=== PATIENT | male | born 1970 | race Caucasian/White ===

== ENCOUNTER 2016-08-06 12:22 | Emergency (ER) | payer OTHER ==
[~2016-08-06] VITALS: Wt 110.0 kg
[~2016-08-06 12:22] MED LIST: ELIM TOP
== END 2016-08-06 16:28 | disposition left against medical advice (07) ==
LOC: FTE 12:22
DX: Z53.21 Procedure and treatment not carried out due to patient leaving prior to being seen by health care provider (principal)

== ENCOUNTER 2017-04-13 03:29 | Inpatient (IN) | payer OTHER ==
[~2017-04-13] VITALS: Ht 190.5 cm; Wt 98.7 kg
[2017-04-13] VITALS (9 sets, daily range): BP systolic 109–132; BP diastolic 61–96; PULSE 50–57; RESP 18; TEMP 96; Ht 190.5 cm; Wt 98.7 kg
--- NOTE | 2017-04-13 03:53 | ERA ---
ER Documentation Chief Complaint Date/Time DATE: 04/13/17 TIME: 03:52 Chief Complaint chest pain/sob x 1 week HPI The patient is a 46-year-old male, presenting with acute on chronic left-sided chest pain and dyspnea on exertion for the last 3-4 years. He was seen at [facility] by the hospital 4 days ago and was found to have symptomatic bradycardia. He had a pacemaker implanted and discharged 3 days ago. He still complaining of having chronic left-sided chest pain and chronic dyspnea on exertion, denies paroxysmal nocturnal dyspnea, orthopnea. He denies neck pain, chest pain with vomiting/diaphoresis, abdominal pain, vomiting, dysuria, diarrhea. He does not smoke nor drink or use illicit drugs Past medical history: Hepatitis C, CAD Past medical history: Pacemaker ROS All systems reviewed and are negative except as per history of present illness. Medications Home Meds Active Scripts Permethrin* (Elimite*) 5% Cr, 1 APPLIC TOP ONCE, #2 TUB Prov:SHAGGYMOSESERIN 03/11/15 Allergies Allergies: Coded Allergies: No Known Allergies (Unverified Allergy, Unknown, 01/25/15) PMhx/Soc History of Surgery: No Anesthesia Reaction: No Hx Neurological Disorder: No Hx Respiratory Disorders: No Hx Cardiac Disorders: No Hx Psychiatric Problems: No Hx Miscellaneous Medical Probl: Yes (hep c, scabies) Hx Alcohol Use: No Hx Substance Use: No Hx Tobacco Use: No Physical Exam Vitals Vital Signs Date Time Temp Pulse Resp B/P Pulse Ox O2 Delivery O2 Flow Rate FiO2 04/13/17 03:50 96.0 64 20 135/81 100 Room Air 04/13/17 03:34 96.0 60 20 142/80 98 Physical Exam Const: No acute distress. Head: Atraumatic. Eyes: Normal Conjunctiva. ENT: Normal External Ears, Nose and Mouth. Neck: Full range of motion. No meningismus. Resp: Clear to auscultation bilaterally. Cardio: Regular rate and rhythm. Abd: Soft, non distended, normal bowel sounds, non tender. Skin: No petechiae or rashes. Back: No midline or flank tenderness. Ext: No cyanosis, or edema. Neur: Awake and alert. No focal deficit Psych: Normal Mood and Affect. Result Diagram: 04/13/1740904/13/17409 Results 24 hrs Laboratory Tests Test 04/13/17 04:10 White Blood Count 5.810^3/ul Red Blood Count 4.4810^6/ul Hemoglobin 14.0g/dl Hematocrit 39.0% Mean Corpuscular Volume 87.1fl Mean Corpuscular Hemoglobin 31.3pg Mean Corpuscular Hemoglobin Concent 35.9g/dl Red Cell Distribution Width 12.2% Platelet Count 53969^3/UL Mean Platelet Volume 11.2fl Neutrophils % 56.4% Lymphocytes % 26.1% Monocytes % 12.1% Eosinophils % 4.5% Basophils % 0.7% Nucleated Red Blood Cells % 0.0/100WBC Neutrophils # 3.310^3/ul Lymphocytes # 1.510^3/ul Monocytes # 0.710^3/ul Eosinophils # 0.310^3/ul Basophils # 0.010^3/ul Nucleated Red Blood Cells # 0.010^3/ul Prothrombin Time 14.8Sec Prothrombin Time Ratio 1.2 INR International Normalized Ratio 1.16 Activated Partial Thromboplast Time 31.4Sec Sodium Level 141mmol/L Potassium Level 4.1mmol/L Chloride Level 102mmol/L Carbon Dioxide Level 33mmol/L Anion Gap 10 Blood Urea Nitrogen 14mg/dl Creatinine 0.85mg/dl Glucose Level 71mg/dl Calcium Level 8.8mg/dl Magnesium Level 1.6mg/dl Troponin I < 0.012ng/ml B-Type Natriuretic Peptide 35PG/ML Procedures/MDM EKG: Read by emergency physician Rate/Rhythm: Sinus bradycardia 55 beats/min QRS, ST, T-waves: No ST elevation, no T inversion Impression: Abnormal EKG [place] [id number] Radiology Main Line: [phone] DIAGNOSTIC IMAGING REPORT Patient: AMANDA GARCIA : 1970 Age: 46 Sex: M MR #: [id number] DOS: 04/13/17 0400 Ordering MD: BARTOLO PEARL MD Location: E/R Room/Bed: PROCEDURE: Chest. CLINICAL INDICATION: Shortness of breath. TECHNIQUE: Single frontal view of the chest was obtained. COMPARISON: 06/04/2014. FINDINGS: There is a left-sided pacemaker. The cardiac silhouette is magnified. The aortic arch is unremarkable. There is no focal consolidation, vascular congestion or pleural effusion. There is no pneumothorax. IMPRESSION: No evidence for active cardiopulmonary disease. .Alexis Rg MD, Date Time Electronically viewed and signed by .Alexis Rg MD, on 04/13/2017 04:42 .T/ CC: BARTOLO PEARL MD MEDICAL MAKING DECISION: The patient is a 46-year-old male, with multiple cardiac risk factor, presenting with acute chest pain that is concerning for an acute ACS. He was treated with aspirin 325 mg p.o. and 1 inch of nitroglycerin ointment to the chest wall with good response The differential diagnoses considered include but are not limited to acute coronary syndrome, acute myocardial infarction, pericarditis, pulmonary embolism , aortic dissection, pneumonia, pleural effusion, pneumothorax, GERD, chest wall pain. Departure Diagnosis: Primary Impression: Chest pain Condition: Stable Comments I discussed the findings with the patient. I discussed the patient with the on- call hospitalist Dr. Foster at 5:30 AM who was made aware of the lab, the treatment, the patient condition. The patient is admitted to telemetry BARTOLO PEARL MD Apr 13, 2017 03:53
[2017-04-13 04:25] LABS: BASOPHILS % 0.7 % (0.0-2.0); EOSINOPHILS # 0.3 10^3/ul (0.0-0.5); EOSINOPHILS % 4.5 % (0.0-7.0); LYMPHOCYTES # 1.5 10^3/ul (0.8-2.9); LYMPHOCYTES % 26.1 % (15.0-51.0); MEAN CORPUSCULAR HEMOGLOBIN 31.3 pg (29.0-33.0); MEAN CORPUSCULAR HGB CONC 35.9 g/dl (32.0-37.0); MEAN CORPUSCULAR VOLUME 87.1 fl (82.0-101.0); MEAN PLATELET VOLUME 11.2 fl (7.4-10.4); MONOCYTE # 0.7 10^3/ul (0.3-0.9); MONOCYTES % 12.1 % (0.0-11.0); NEUTROPHIL # 3.3 10^3/ul (1.6-7.5); NEUTROPHILS % 56.4 % (39.0-77.0); PLATELET COUNT 175 10^3/UL (140-415); RED BLOOD COUNT 4.48 10^6/ul (4.70-6.10); RED CELL DISTRIBUTION WIDTH 12.2 % (11.5-14.5); WHITE BLOOD COUNT 5.8 10^3/ul (4.8-10.8)
[2017-04-13 04:40] LABS: INR 1.16; PROTIME 14.8 Sec (12.2-14.2); PT RATIO 1.2
[2017-04-13 04:41] LABS: PARTIAL THROMBOPLASTIN TIME 31.4 Sec (25.0-35.0)
--- NOTE | 2017-04-13 04:42 | RADRPT ---
PROCEDURE: Chest. CLINICAL INDICATION: Shortness of breath. TECHNIQUE: Single frontal view of the chest was obtained. COMPARISON: 06/04/2014. FINDINGS: There is a left-sided pacemaker. The cardiac silhouette is magnified. The aortic arch is unremarkab le. There is no focal consolidation, vascular congestion or pleural effusion. There is no pneumoth orax. IMPRESSION: No evidence for active cardiopulmonary disease. .Alexis Rg MD, MD Date Time Electronically viewed and signed by .Alexis Rg MD, on 04/13/2017 04:42 .T/
[2017-04-13 04:59] LABS: ANION GAP 10 (8-16); BLOOD UREA NITROGEN 14 mg/dl (7-20); CALCIUM 8.8 mg/dl (8.4-10.2); CARBON DIOXIDE 33 mmol/L (21-31); CHLORIDE 102 mmol/L (97-110); CREATININE 0.85 mg/dl (0.61-1.24); GLUCOSE 71 mg/dl (70-220); MAGNESIUM 1.6 mg/dl (1.7-2.5); POTASSIUM 4.1 mmol/L (3.5-5.1); SODIUM 141 mmol/L (135-144)
[2017-04-13 05:08] LABS: B-TYPE NATRIURETIC PEPTIDE 35 PG/ML (0-125)
[2017-04-13 05:22] LABS: TROPONIN-I < 0.012 ng/ml (0.00-0.12)
[2017-04-13] MEDS ORDERED: ASPIRIN 325 MG TAB PO ONE (06:00)
[2017-04-13] MEDS ORDERED: NITROGLYCERIN 2% 1 GM OINT PKT TD ONE (06:00)
[2017-04-13] MEDS ORDERED: BISACODYL (EC) 5 MG TAB PO PRN (06:30)
[2017-04-13] MEDS ORDERED: NACL 0.9% 3 ML SYG IV SCH (06:30)
[2017-04-13] MEDS ORDERED: DOCUSATE SODIUM 100 MG CAP PO PRN (06:30)
[2017-04-13] MEDS ORDERED: NITROGLYCERIN (SL) 0.4 MG TAB SL PRN (06:30)
[2017-04-13] MEDS ORDERED: morphine 2 MG INJ IV PRN (06:30)
[2017-04-13] MEDS ORDERED: ONDANSETRON 4 MG INJ IV PRN (06:30)
[2017-04-13] MEDS ORDERED: ACETAMINOPHEN 325 MG TAB PO PRN (06:30)
[2017-04-13 06:53] LABS: BARBITURATES Negative (NEGATIVE); BENZODIAZEPINES Negative (NEGATIVE); CANNABINOIDS Negative (NEGATIVE); COCAINE Negative (NEGATIVE); OPIATES Negative (NEGATIVE)
[2017-04-13] MEDS ORDERED: ASPIRIN 81 MG TAB PO SCH (09:00)
[2017-04-13] MEDS ORDERED: FAMOTIDINE 20 MG TAB PO SCH (09:00)
[2017-04-13] MEDS ORDERED: MAGNESIUM SULFATE 1 GM/D5W 100 ML IVPB ONE (10:30)
[2017-04-13 10:50] LABS: CREATINE KINASE 102 IU/L (23-200)
[2017-04-13 11:05] LABS: CK-MB 1.31 ng/ml (0.0-2.4); TROPONIN-I < 0.012 ng/ml (0.00-0.12)
--- NOTE | 2017-04-13 12:26 | HP ---
Date/Time of Note Date/Time of Note DATE: 04/13/17 TIME: 12:22 Assessment/Plan VTE Prophylaxis VTE Prophylaxis Intervention: SCD's Lines/Catheters IV Catheter Type (from Nrsg): Saline Lock Urinary Cath still in place: No Assessment/Plan Assessment/Plan 46 yo M with 4 years of chest pain, stress test negative within past 4 weeks, PM placement within past 4 days for symptomatic bradycardia. Suspect noncardiac chest pain given recent negative stress device interrogated today by [employer], working well if able to obtain paper copy of recent stress test, will dc today. otherwise will call OSH again and then dc in AM HPI/ROS Admit Date/Time Admit Date/Time Apr 13, 2017 at 05:27 Hx of Present Illness 46 yo M presents with 4 years of chronic chest pain. Pt seen at [facility] for this, released 4 days ago. Work up at OSH notable for NEGATIVE NM STRESS TEST, finding of sinus bradycardia for which PM was placed. Pt poor historian, keeps pulling blanket up over his head States he does not know what predatory hunter he is supposed to see in follow up PMH/Family/Social Past Medical History sinus bradycardia sp recent PM placement Social History Smoking Status: Never smoker Exam/Review of Systems Vital Signs Vitals Vital Signs Date Time Temp Pulse Resp B/P Pulse Ox O2 Delivery O2 Flow Rate FiO2 04/13/17 11:34 97.7 50 18 109/61 98 04/13/17 06:34 Room Air Exam Exam laying in bed, covered in tattoos PM site with gauze and clear bandage over it no mrg lungs clear abd soft no edema labs reviewed, trops neg x 2 Labs Result Diagram: 04/13/17 0410 04/13/17 0410 Medications Medications Current Medications Ondansetron HCl (Zofran Inj) 4 mg Q6H PRN IV NAUSEA AND/OR VOMITING; Start at 06:30 Aspirin (Aspirin) 81 mg DAILY PO Last administered on 04/13/17t 09:43; Admin Dose 81 MG; Start 04/13/17 at 09:00 Nitroglycerin (Nitroglycerin (Sl Tab) 0.4 Mg) 1 tab Q5M PRN SL CHEST PAIN; Start 04/13/17 at 06:30 Acetaminophen (Tylenol Tab) 650 mg Q6H PRN PO PAIN LEVEL 1-3 OR FEVER; Start at 06:30 Morphine Sulfate (morphine) 2 mg Q4H PRN IV PAIN LEVEL 7-10; Start 04/13/17 at 06:30 Docusate Sodium (Colace) 100 mg Q12H PRN PO CONSTIPATION; Start 04/13/17 at 06: 30 Bisacodyl (Dulcolax) 5 mg DAILY PRN PO CONSTIPATION; Start 04/13/17 at 06:30 TIMUR VERDUGO MD Apr 13, 2017 12:26
[2017-04-13 15:48] LABS: CREATINE KINASE 85 IU/L (23-200)
[2017-04-13 16:01] LABS: CK-MB 1.02 ng/ml (0.0-2.4); TROPONIN-I < 0.012 ng/ml (0.00-0.12)
--- NOTE | 2017-04-13 16:36 | PDOCDIS ---
Discharge Instructions CONDITION Patient Condition: Stable FOLLOW UP/APPOINTMENTS Follow-up Plan Follow up with your regular doctor within 7 days TIMUR VERDUGO MD Apr 13, 2017 16:36
--- NOTE | 2017-04-13 16:41 | DS ---
Date/Time of Note Date/Time of Note DATE: 04/13/17 TIME: 16:36 Discharge Summary Admission/Discharge Info Admit Date/Time Apr 13, 2017 at 05:27 Discharge Date/Time Discharge Diagnosis chest discomfort Patient Condition: Stable Procedures EKG: sinus jeanette PM evaluated by device rep: working well, lower threshold for HR is 50 Hx of Present Illness 46 yo M presents with 4 years of chronic chest pain. Pt seen at [facility] for this, released 4 days ago. Work up at OSH notable for NEGATIVE NM STRESS TEST, finding of sinus bradycardia for which PM was placed. Pt poor historian, keeps pulling blanket up over his head States he does not know what nickel operator he is supposed to see in follow up Hospital Course Pt ruled out for ACS with serial troponins. I contacted Dr Robins the nickel operator who placed the pt's PM at [facility]. He states pt had a stress test at that hospital within the past 2 weeks which was negative. [facility] Chart reviewed. Pt also had cardiac cath in 2013 which was normal at an OSH. Device assessed by company rep and is functioning well. Pt does not have any known cardiovascular risk factors. No hx HTN, HL, DM. Initial EKG nl. HEART score is 1 (pt's age). Pt advised to follow up with PCP for any further concerns Home Meds Active Scripts Permethrin* (Elimite*) 5% Cr, 1 APPLIC TOP ONCE, #2 TUB Prov:ERIN COON DO 03/11/15 Follow-up Plan Follow up with your regular doctor within 7 days Primary Care Provider Care Physician No Primary Pending Labs Laboratory Tests Test 04/13/17 04:10 04/13/17 05:40 04/13/17 09:32 04/13/17 15:12 White Blood Count 5.810^3/ul (4.8-10.8) Red Blood Count 4.4810^6/ul (4.70-6.10) Hemoglobin 14.0g/dl (14.0-18.0) Hematocrit 39.0% (42.0-52.0) Mean Corpuscular Volume 87.1fl (82.0-101.0) Mean Corpuscular Hemoglobin 31.3pg (29.0-33.0) Mean Corpuscular Hemoglobin Concent 35.9g/dl (32.0-37.0) Red Cell Distribution Width 12.2% (11.5-14.5) Platelet Count 36043^3/UL (140-415) Mean Platelet Volume 11.2fl (7.4-10.4) Neutrophils % 56.4% (39.0-77.0) Lymphocytes % 26.1% (15.0-51.0) Monocytes % 12.1% (0.0-11.0) Eosinophils % 4.5% (0.0-7.0) Basophils % 0.7% (0.0-2.0) Nucleated Red Blood Cells % 0.0/100WBC (0.0-0.0) Neutrophils # 3.310^3/ul (1.6-7.5) Lymphocytes # 1.510^3/ul (0.8-2.9) Monocytes # 0.710^3/ul (0.3-0.9) Eosinophils # 0.310^3/ul (0.0-0.5) Basophils # 0.010^3/ul (0.0-0.1) Nucleated Red Blood Cells # 0.010^3/ul (0.0-0.0) Prothrombin Time 14.8Sec (12.2-14.2) Prothrombin Time Ratio 1.2 INR International Normalized Ratio 1.16 Activated Partial Thromboplast Time 31.4Sec (25.0-35.0) Sodium Level 141mmol/L (135-144) Potassium Level 4.1mmol/L (3.5-5.1) Chloride Level 102mmol/L (97-110) Carbon Dioxide Level 33mmol/L (21-31) Anion Gap 10 (8-16) Blood Urea Nitrogen 14mg/dl (7-20) Creatinine 0.85mg/dl (0.61-1.24) Glucose Level 71mg/dl (70-220) Calcium Level 8.8mg/dl (8.4-10.2) Magnesium Level 1.6mg/dl (1.7-2.5) Troponin I < 0.012ng/ml (0.00-0.12) < 0.012ng/ml (0.00-0.12) < 0.012ng/ml (0.00-0.12) B-Type Natriuretic Peptide 35PG/ML (0-125) Urine Opiates Screen Negative (NEGATIVE) Urine Barbiturates Negative (NEGATIVE) Urine Amphetamines Screen Negative (NEGATIVE) Urine Benzodiazepines Screen Negative (NEGATIVE) Urine Cocaine Screen Negative (NEGATIVE) Urine Cannabinoids Negative (NEGATIVE) Creatine Kinase 102IU/L (23-200) 85IU/L (23-200) Creatine Kinase Index 1.3 1.2 Creatinine Kinase MB (Mass) 1.31ng/ml (0.0-2.4) 1.02ng/ml (0.0-2.4) TIMUR VERDUGO MD Apr 13, 2017 16:41
--- NOTE | 2017-04-15 13:21 | RADRPT ---
Echocardiogram Report Patient Name: AMANDA GARCIA Gender: Male Date: 1970 Study Date: 13-Apr-2017 Bicycle Rental Clerk: Kristine [facility] Location: 516-A Ref. Physician: SANDY HER Quality: Adequate Procedures: Transthoracic echocardiogram with complete 2D, M-Mode, and doppler examination. Indications: Chest Pain. 2D/M Mode Doppler Measurement Value Normal Ranges Measurement Value Normal Ranges LVIDd 2D 5.0 3.5 - 5.6 cm AV Peak Jesse 1.4 m/sec LVIDs 2D 3.3 2.1 - 4.1 cm AV Peak PG 8.0 mmHg FS 2D 33.6 % LVOT Peak Jesse 0.9 m/sec LVPWd 2D 1.0 0.6 - 1.1 cm LVOT Peak PG 4.0 mmHg IVSd 2D 1.0 0.6 - 1.1 cm MV E Peak Jesse 0.7 m/sec IVS/LVPW 2D 1.0 MV A Peak Jesse 0.6 m/sec AoR Diam 2D 2.2 2.0 - 3.7 cm MV E/A 1.2 LA/Ao 2D 2 0 - 1 MV Decel Time 130 msec EDV 2D 125.0 cm3 MV E/A 1.2 ESV 2D 36.6 cm3 TR Peak Jesse 2.4 m/sec LA Dimen 2D 3.8 2.3 - 4.0 cm TR Peak PG 22.0 mmHg RVSP 25.0 mmHg Findings Left Ventricle: Normal left ventricular systolic function. Normal left ventricular cavity size. Normal left ventricular wall thickness. Ejection fraction is visually estimated at 60 %. Abnormal Diastolic Function. Right Ventricle: Normal right ventricular size. Normal right ventricular systolic function. Pacemaker right heart. Left Atrium: The left atrium is normal in size. Right Atrium: The right atrium is normal in size. Mitral Valve: Mild mitral leaflet calcification. Mild mitral annular calcification. Trace mitral regurgitation. Aortic Valve: Normal appearance of the aortic valve. No significant aortic stenosis or insufficiency. Tricuspid Valve: Normal appearance of the tricuspid valve. Estimated peak PA systolic pressure 25 mmHg. There is mild tricuspid regurgitation. Pulmonic Valve: Pulmonic valve not well visualized. There is trace pulmonic regurgitation. Pericardium: Normal pericardium with no significant pericardial effusion. Aorta: Normal aortic root. IVC: Normal size and normal respiratory collapse consistent with normal right atrial pressure. Conclusions 1.Normal left ventricular systolic function. Normal left ventricular cavity size. Normal left ventricular wall thickness. 2.Abnormal LV Diastolic Function noted. 3.Pacemaker in right heart detected. 4.Mild mitral annular calcification. Electronically Signed By: Wagner Pride 15-Apr-2017 13:20:10 -0700 Patient Name: AMANDA GARCIA Study Date: 13-Apr-2017 [id number]
== END 2017-04-13 18:23 | disposition home or self-care (01) | DRG 310 ==
LOC: E/R 03:29 → TEL 05:27
PROVIDERS: ADMIT Family Medicine; ATTEND Family Medicine
DX: R00.1 Bradycardia, unspecified (principal); R07.9 Chest pain, unspecified
CPT/HCPCS: 36415; 71010; 80048; 80307; 82550; 82553; 83735; 83880; 84484; 85025; 85610; 85730; 93005; 93306; J3475

== ENCOUNTER 2017-05-10 09:34 | Emergency (ER) | payer OTHER ==
[~2017-05-10] VITALS: Ht 157.5 cm; Wt 100.0 kg
[2017-05-10 09:47] VITALS: Ht 157.5 cm; Wt 100.0 kg
--- NOTE | 2017-05-10 12:40 | ERD ---
ER Documentation Chief Complaint Chief Complaint Complains of right ear pain HPI 46 y/o male presents to the ED, c/o of one week with right ear discomfort after inserting piece of cotton. Denies fever, chills, no otorrhea. No hearing loss ROS All systems reviewed and are negative except as per history of present illness. Medications Home Meds Active Scripts Permethrin* (Elimite*) 5% Cr, 1 APPLIC TOP ONCE, #2 TUB Prov:ERIN COON DO 03/11/15 Allergies Allergies: Coded Allergies: No Known Allergies (Unverified Allergy, Unknown, 01/25/15) PMhx/Soc History of Surgery: No Anesthesia Reaction: No Hx Neurological Disorder: No Hx Respiratory Disorders: No Hx Cardiac Disorders: Yes (Pacemaker 2016) Hx Psychiatric Problems: No Hx Miscellaneous Medical Probl: No Hx Alcohol Use: No Hx Substance Use: No Hx Tobacco Use: No Physical Exam Vitals Vital Signs Date Time Temp Pulse Resp B/P Pulse Ox O2 Delivery O2 Flow Rate FiO2 05/10/17 09:47 97.5 74 20 136/84 98 Physical Exam Head: Atraumatic Eyes: Normal Conjunctiva ENT: Right ear: with material in the ear canal. Left External Ear, Nose and Mouth normal. Neck: Full range of motion..~ No meningismus. Resp: Clear to auscultation bilaterally Cardio: Regular rate and rhythm, no murmurs Procedures/MDM Right ear FB: Successfully removed by ear irrigation. No signs of infection. We recommend a follow up with PCP in 2-4d. Departure Diagnosis: Primary Impression: Right ear pain Additional Impression: Ear foreign body Condition: Stable Patient Instructions: Earache W/O Infection (Adult) Additional Instructions: Please schedule a follow up appointment with your primary doctor in 2 days and bring all the information and prescriptions that we have given to you today. If the doctor is unavailable and the symptoms persist or worsen, please return to the hospital immediately. HERMILO PURDY MD May 10, 2017 12:40
== END 2017-05-10 13:00 | disposition home or self-care (01) ==
LOC: FTE 09:34
DX: T16.1XXA Foreign body in right ear, initial encounter (principal); X58.XXXA Exposure to other specified factors, initial encounter; Y92.9 Unspecified place or not applicable; Z95.0 Presence of cardiac pacemaker
CPT/HCPCS: 99282